=== PATIENT | female | born 1985 | race Caucasian/White ===

== ENCOUNTER 2016-12-03 06:57 | Inpatient (IN) | payer OTHER ==
[2016-12-03] VITALS (26 sets, daily range): BP systolic 119–180; BP diastolic 58–95; PULSE 16–123; TEMP 93–102.7
[~2016-12-03] VITALS: Ht 162.6 cm; Wt 77.7 kg
[~2016-12-03 06:57] MED LIST: ASPIRIN 81M81 MG/TA2 PO; MULTIPLE VITAMI1 CAP PO
[2016-12-03] MEDS ORDERED: PRENATAL1 TA7 PO (07:15)
[2016-12-03 09:12] LABS: BASO % 0.2 % (0.0-2.0); GRAN # 15.1 (1.4-6.5); GRAN % 89.8 % (42.2-75.2); HEMATOCRIT 40.6 % (37.0-47.0); HEMOGLOBIN 13.8 g/dl (12.5-16.0); MEAN CELL VOLUME 87 fl (80.0-100.0); MEAN CORPUSCULAR HEMOGLOBIN 29 pg (27.0-31.0); MEAN CORPUSCULAR HGB CONC 34 g/dl (33.0-37.0); MEAN PLATELET VOLUME 11.9 fl (7.4-10.4); MONO # 0.4 (0.1-0.6); MONO % 2.6 % (1.7-9.3); PLATELET COUNT 231 K/mm3 (130-400); RED BLOOD COUNT 4.69 M/mm3 (4.10-5.30); REDCELL DISTRIBUTION WIDTH-CV 13.3 % (11.5-14.5); WHITE BLOOD COUNT 16.9 K/mm3 (4.8-10.8)
[2016-12-04 00:23] VITALS: BP 132/67; PULSE 78; TEMP 99.9
[2016-12-04 03:56] VITALS: BP 125/68; PULSE 68; TEMP 98.8
[2016-12-04 07:00] VITALS: BP 134/63; PULSE 65; TEMP 97.3
[2016-12-04 09:46] LABS: BASO % 0.2 % (0.0-2.0); EOS % 0.1 % (0-4.0); GRAN % 83.4 % (42.2-75.2); LYMPH # 1.6 (1.2-3.4); LYMPH % 9.1 % (20.0-51.0); MEAN CELL VOLUME 89 fl (80.0-100.0); MEAN CORPUSCULAR HGB CONC 34 g/dl (33.0-37.0); MEAN PLATELET VOLUME 11.7 fl (7.4-10.4); MONO # 1.1 (0.1-0.6); MONO % 6.3 % (1.7-9.3); PLATELET COUNT 171 K/mm3 (130-400); RED BLOOD COUNT 4.01 M/mm3 (4.10-5.30); REDCELL DISTRIBUTION WIDTH-CV 14.2 % (11.5-14.5); WHITE BLOOD COUNT 17.9 K/mm3 (4.8-10.8)
[2016-12-04 09:47] LABS: HEMATOCRIT 35.5 % (37.0-47.0); HEMOGLOBIN 11.9 g/dl (12.5-16.0); MEAN CORPUSCULAR HEMOGLOBIN 30 pg (27.0-31.0)
[2016-12-04] MEDS ORDERED: LOVENOX 4040 MG/0.4 SQ (12:30)
[2016-12-04] MEDS ORDERED: IBU600 MG PO (12:30)
[2016-12-04] MEDS ORDERED: PERCOCET 325 MG1 TA2 PO (12:31)
[2016-12-04 16:00] VITALS: BP 126/75; PULSE 66; TEMP 98
[2016-12-04 21:50] VITALS: BP 126/72; PULSE 65; TEMP 98.1
[2016-12-05 07:59] VITALS: BP 125/80; PULSE 64; TEMP 97.6
== END 2016-12-05 11:56 | disposition home or self-care (01) | DRG 774 ==
LOC: LDRO 06:57 → OB 07:37 → LDR 07:37 → OB 20:17 → LDRO 12-09 07:41
PROVIDERS: Obstetrics & Gynecology
PROC: 10E0XZZ Delivery of Products of Conception, External Approach (ICD-10-PCS; principal; 2016-12-03)
PROC: 0UQMXZZ Repair Vulva, External Approach (ICD-10-PCS; 2016-12-03)
DX: O77.0 Labor and delivery complicated by meconium in amniotic fluid (principal); O86.4 Pyrexia of unknown origin following delivery; O70.0 First degree perineal laceration during delivery; Z3A.39 39 weeks gestation of pregnancy; Z37.0 Single live birth
CPT/HCPCS: J0290; J1580; J1650; J2210; J2590; J7120

== ENCOUNTER → 2016-12-10 | Outpatient (CLI) | payer OTHER ==
[~2016-12-10] MED LIST changes: +IBU600 MG PO; +LOVENOX 4040 MG/0.4 SQ; +PERCOCET 325 MG1 TA2 PO; +PRENATAL1 TA7 PO
== END ==
LOC: OLC 11:39
DX: Z39.1 Encounter for care and examination of lactating mother (principal); Z71.89 Other specified counseling

== ENCOUNTER 2020-01-13 14:14 | Inpatient (IN) | payer OTHER ==
[~2020-01-13] VITALS: Ht 162.6 cm; Wt 80.0 kg
[2020-01-13] VITALS (28 sets, daily range): BP systolic 123–169; BP diastolic 60–89; PULSE 71–110; TEMP 98.3–98.6
--- NOTE | 2020-01-13 14:15 | NUR ---
Pt arrives on unit via wheelchair. States ctx that started at 1000 this morning. Denies vaginal bleeding, LOF, and reports GFM. Changed into clean gown. EFM and toco applied. VSS. SVE per Diandra Connor RN . Dr. Carrillo notified. Orders for admission. Pt updated on POC. No questions or concerns at this time.
[2020-01-13 15:23] LABS: BASO % 0.3 % (0.0-2.0); EOS % 0.3 % (0-4.0); GRAN # 8.8 (1.4-6.5); HEMATOCRIT 41.2 % (37.0-47.0); HEMOGLOBIN 13.9 g/dl (12.5-16.0); LYMPH # 2.1 (1.2-3.4); MEAN CELL VOLUME 86 fl (80.0-100.0); MEAN CORPUSCULAR HEMOGLOBIN 29 pg (27.0-31.0); MEAN CORPUSCULAR HGB CONC 34 g/dl (33.0-37.0); MEAN PLATELET VOLUME 12.4 fl (7.4-10.4); MONO # 0.8 (0.1-0.6); MONO % 6.7 % (1.7-9.3); PLATELET COUNT 260 K/mm3 (130-400); REDCELL DISTRIBUTION WIDTH-CV 13.1 % (11.5-14.5)
--- NOTE | 2020-01-13 17:55 | NUR ---
1450 DR PRATT CALLED TO COME FOR DELIVERY NOW 1500 DR AT BEDSIDE. AROM WITH AMNIOHOOK LARGE AMOUNT CLEAR FLUID.
--- NOTE | 2020-01-13 17:57 | NUR ---
[address] PRATT. PATIENT WILL PUSH WITH EACH CONTRACTION. DR PRATT REMIANS AT BEDSIDE. FHT 120 WITH OCCASIONAL VARIABLES NOTED.
--- NOTE | 2020-01-13 18:00 | NUR ---
1600 POSITIONED CHANGED EVERY 30 MIN. KNEE CHEST. LL TO RL. TO SQUAT. PER PATIENT REQUEST
--- NOTE | 2020-01-13 18:02 | NUR ---
1700 DR PRATT HAS TO GO TO ANOTHER DELIVER. DR ROLES AT BEDSIDE. PATIENT CONTINUES TO PUSH IN KNEE CHEST AND ALTERNATING SQUAT POSITIONS EVER 30 MIN
--- NOTE | 2020-01-13 18:04 | NUR ---
5052 PATIENT CONTINUES TO PUSH IN LEFT SIDE LYING POSITION
--- NOTE | 2020-01-13 18:05 | NUR ---
7684 SMALL AMOUNT OF CERVIX NOTED, PER THIS NURSE. DR PRATT AT BEDSIDE AT BEDSIDE FOR EVALUATION. PATIENT TO RIDE SIDE LYING POSITION AND TO BREATH THROUGH CONTRACTIONS FOR 30 MIN. NO PUSHING DURING THIS TIME.
--- NOTE | 2020-01-13 18:58 | NUR ---
181- THIS RN TO SHIFT CHANGE AND TOOK OVER PUSHING FOR Diandra STEPHENSON RN. REPORT GIVEN BEDSIDE DURING PUSHING. THIS RN AND DOCTOR REMAIN AT BEDSIDE. 1830- PROVIDER DOES SVE CHECK WITH PUSHING AND THERE HAS BEEN NO PROGRESSION. DISCUSSES OPTION. PATIENT ASKING FOR EPIDURAL AND TO LAY ON HER RIGHT SIDE FOR NOW. 1840- BED PUT BACK TOGETHER AND PATIENT HELPED TO RIGHT LATERAL LAYING POSITION. PROVIDER LEAVES TO GO DISCUSS WITH ANESTHESIA ABOUT EPIDURAL. THIS RN REMAINS AT BEDSIDE WITH PATIENT. 185- PATIENT FEELS URGE TO PUSH AGAIN AND BEGINS PUSHING. PROVIDER CALLED BACK TO BEDSIDE. HE STATES THEY ARE READY TO HAVE A BABY. NURSERY NOTIFIED. PATIENT REQUESTS TO PUSH ON HER RIGHT SIDE. 185- OF VIABLE MALE . PLACED TO MOTHERS ABDOMEN AND NURSERY NURSE ASSUMES CARE AT THIS TIME. PATIENT HELPED BACK TO LYING POSITION. 190- OF PLACENTA. PITOCIN STARTED PER PROTOCOL AT 333ML/HR. FUNDUS MASSAGED TO FIRM BY PROVIDER. PROVIDER NOTES PATIENT PERINEUM IS INTACT. PROVIDER NOTES EBL TO BE 100. 190- FUNDUS FIRM WITH MODERATE ABOUT OF BLOOD NOTED AND NO CLOTS. VITALS STABLE. PATIENT CLEANED UP CLEAN CHUX, PAD AND ICE PACK TO PATIENT PERINEUM. RECOVERY STARTED.
[2020-01-14 05:54] VITALS: BP 114/69; PULSE 78; TEMP 98.2
[2020-01-14 07:04] LABS: HEMOGLOBIN 11.4 g/dl (12.5-16.0)
[2020-01-14] MEDS ORDERED: LOVENOX 4040 MG/0.4 SQ (08:03)
--- NOTE | 2020-01-14 08:59 | NUR ---
Initial visit; Parents thanked Grading Clerk for offering congratulations and God's blessings for the of their son. Grading Clerk thanked family for choosing [facility].
[2020-01-14 10:15] VITALS: BP 116/72; PULSE 81; TEMP 97.9
[2020-01-14 15:00] VITALS: BP 127/72; PULSE 83; TEMP 98.3
--- NOTE | 2020-01-14 15:30 | NUR ---
Rests in bed, alert. Denies any needs at this time.
[2020-01-14 20:10] VITALS: BP 113/72; PULSE 83; TEMP 97.3
--- NOTE | 2020-01-15 14:10 | NUR ---
Discharge instructions given, pt verbalizes understanding. No further questions noted. Bands matched and hugs tag removed.
== END 2020-01-15 14:20 | disposition home or self-care (01) | DRG 806 ==
LOC: LDRO 14:14 → LDR 14:29 → OB 14:29
PROVIDERS: ADMIT Obstetrics & Gynecology
PROC: 10E0XZZ Delivery of Products of Conception, External Approach (ICD-10-PCS; principal; 2020-01-13)
PROC: 10907ZC Drainage of Amniotic Fluid, Therapeutic from Products of Conception, Via Natural or Artificial Opening (ICD-10-PCS; 2020-01-13)
DX: O99.12 Other diseases of the blood and blood-forming organs and certain disorders involving the immune mechanism complicating childbirth (principal); D68.52 Prothrombin gene mutation; Z37.0 Single live birth; O77.0 Labor and delivery complicated by meconium in amniotic fluid; O71.82 Other specified trauma to perineum and vulva; Z3A.37 37 weeks gestation of pregnancy
CPT/HCPCS: J1650; J2540; J2590; J7120